=== PATIENT | female | born 1980 | race Caucasian/White ===

== ENCOUNTER 2017-08-12 18:26 | Emergency (ER) | payer BC, OTHER ==
[2017-08-12 20:08] VITALS: BP 148/100
[2017-08-12] MEDS ORDERED: HYDROcodone/ACETAMIN 5-325 MG* 1 TAB PO ONE (20:51)
--- NOTE | 2017-08-12 20:51 | UC ---
Upper Extremity HPI - HPI Summary HPI Summary: Patient's here today with complaints of left forearm pain after falling at home and slipping on ice in the driveway on the - History of Current Complaint Chief Complaint: UCUpperExtremity Stated Complaint: ARM INJURY Time Seen by Provider: 08/12/17 20:47 Hx Obtained From: Patient ?: No Onset/Duration: Sudden Onset Severity Initially: Mild Severity Currently: Mild Pain Intensity: 3 Pain Scale Used: 0-10 Numeric Location Of Pain: Is Discrete @ Character: Aching Aggravating Factor(s): Movement Alleviating Factor(s): OTC Meds Associated Signs And Symptoms: Positive: Swelling, Bruising Related History: Dominant Hand Right - Allergies/Home Medications Allergies/Adverse Reactions: Allergies Allergy/AdvReac Type Severity Reaction Status Date / Time erythromycin base Allergy Rash Verified 08/12/17 20:09 Home Medications: Home Medications Ascorbic Acid TAB* [Vitamin C TAB*] 1 tab PO DAILY WITH MEAL 08/12/17 [History Confirmed 08/12/17] Estradiol [Miniv[place]] 1 patch TOPICAL SEE INSTRUCTIONS 08/12/17 [History Confirmed 08/12/17] PMH/Surg Hx/FS Hx/Imm Hx Previously Healthy: No Psychological History: Depression - Surgical History Surgical History: None Surgery Procedure, Year, and Place: OVARIAN CYST-2005. UTERINE POLYPS REMOVED- 2009. ENDOSCOPY. WISDOM TEETH. GASTRIC SLEEVE- 2012-. D&C with IUD placement 10/25/13. Removal of endometrioma - Family History Known Family History: Positive: None - Social History Occupation: Employed Full-time Lives: With Family Alcohol Use: Occasionally Substance Use Type: Prescribed Smoking Status (MU): Never Smoked Tobacco Amount Used/How Often: 1/2-1PPD X 10 YEARS When Did the Patient Quit Smoking/Using Tobacco: 2005 - Immunization History Most Recent Influenza Vaccination: 2013 Most Recent Tetanus Shot: UTD Most Recent Pneumonia Vaccination: NONE Review of Systems Constitutional: Negative Skin: Negative Eyes: Negative ENT: Negative Respiratory: Negative Cardiovascular: Negative Gastrointestinal: Negative Genitourinary: Negative Motor: Negative Neurovascular: Negative Musculoskeletal: Arthralgia - Patient complains of left forearm pain and swelling Neurological: Negative Psychological: Negative Is Patient Immunocompromised?: No All Other Systems Reviewed And Are Negative: Yes Physical Exam Triage Information Reviewed: Yes Appearance: Well-Appearing, Pain Distress - Mild pain, Obese Vital Signs: Initial Vital Signs Temp 97.3 F 08/12/17 20:04 Pulse 79 08/12/17 20:04 Resp 18 08/12/17 20:04 BP 148/100 08/12/17 20:04 Pulse Ox 99 08/12/17 20:04 Vital Signs Reviewed: Yes Eye Exam: Normal Eyes: Positive: Conjunctiva Clear ENT Exam: Normal ENT: Positive: Normal ENT inspection, Hearing grossly normal. Negative: Trismus , Muffled voice, Hoarse voice, Dental tenderness Dental Exam: Normal Neck exam: Normal Neck: Positive: Supple, Nontender Respiratory Exam: Normal Respiratory: Positive: Chest non-tender, No respiratory distress, No accessory muscle use Cardiovascular Exam: Normal Cardiovascular: Positive: RRR, Pulses Normal, Brisk Capillary Refill Musculoskeletal Exam: Normal Musculoskeletal: Positive: Strength Intact, ROM Intact, Edema @ - Left forearm Neurological Exam: Normal Neurological: Positive: Alert, Muscle Tone Normal Psychological Exam: Normal Skin Exam: Normal Diagnostics - Radiology No standard instances Xray Interpretation: No Acute Changes Radiology Interpretation Completed By: ED Physician, Radiologist Upper Extremity Course/Dx - Course Course Of Treatment: Adolfo wrap, ibuprofen, warm compress follow with pcp prn - Differential Dx/Diagnosis Provider Diagnoses: Diagnosis left forearm contusion elevated blood pressure without history of hypertension Discharge - Discharge Plan Condition: Stable Disposition: HOME Prescriptions: Hydrocodone/Acetaminophen [Hydrocodone-Acetamin 5-325 mg] 1 each PO Q6H PRN #12 tablet MDD 4 PRN Reason: pain Patient Education Materials: Ibuprofen (By mouth), Contusion in Adults (ED), Hypertension (ED), Hematoma (ED), Warm Compress or Soak (ED) Referrals: [facility] [Outside] - 1 Week Additional Instructions: Follow with primary care doctor or use referral to find PCP
--- NOTE | 2017-08-12 21:15 | RAD ---
INDICATION: Left forearm injury COMPARISON: None TECHNIQUE: AP and lateral views were obtained. FINDINGS: There is no acute fracture or dislocation. There is soft tissue swelling about the mid forearm. IMPRESSION: NO ACUTE FRACTURE.
== END 2017-08-12 22:00 | disposition home or self-care (01) ==
LOC: UCEAST 18:26
DX: S50.12XA Contusion of left forearm, initial encounter (principal); W00.0XXA Fall on same level due to ice and snow, initial encounter; Y93.9 Activity, unspecified; Y92.412 Parkway as the place of occurrence of the external cause; R03.0 Elevated blood-pressure reading, without diagnosis of hypertension; F32.9 Major depressive disorder, single episode, unspecified; Z88.1 Allergy status to other antibiotic agents; Z87.891 Personal history of nicotine dependence
CPT/HCPCS: 99212; G0463